=== PATIENT | male | born 1985 | race Caucasian/White ===

== ENCOUNTER → 2020-01-27 | Outpatient (REF) | payer OTHER, SELFPAY | LOC: M LAB REF 14:27 | PROVIDERS: ATTEND Physician Assistant | DX: Z20.828 Contact with and (suspected) exposure to other viral communicable diseases (principal); Z11.59 Encounter for screening for other viral diseases ==

== ENCOUNTER → 2023-10-30 | Outpatient (CLI) | payer OTHER ==
[2023-10-30 17:55] LABS: HEMATOCRIT 43.5 % (42.0-52.0); HEMOGLOBIN 14.9 g/dl (13.5-17.5); MEAN CORPUSCULAR HEMOGLOBIN 31.6 pg (27.0-33.0); MEAN CORPUSCULAR HGB CONC 34.3 g/dl (32.0-36.5); MEAN CORPUSCULAR VOLUME 92.2 fl (80.0-96.0); PLATELET COUNT, AUTOMATED 353 10^3/uL (150-450); RED BLOOD COUNT 4.72 10^6/uL (4.30-6.10); WHITE BLOOD COUNT 11.6 10^3/uL (4.0-10.0)
[2023-10-30 18:18] LABS: PERCENT SATURATION 34.1 % (19.7-50.0)
[2023-10-30 18:21] LABS: FERRITIN 25.3 NG/ML (10.5-307.3)
== END ==
LOC: M WUC 14:16
PROVIDERS: ATTEND Physician Assistant Surgical
DX: E61.1 Iron deficiency (principal)

== ENCOUNTER → 2024-06-16 | Outpatient (REF) | payer OTHER ==
[2024-06-16 13:23] LABS: HEMATOCRIT 45.8 % (42.0-52.0); HEMOGLOBIN 14.7 g/dl (13.5-17.5); MEAN CORPUSCULAR HEMOGLOBIN 29.8 pg (27.0-33.0); MEAN CORPUSCULAR HGB CONC 32.1 g/dl (32.0-36.5); MEAN CORPUSCULAR VOLUME 92.9 fl (80.0-96.0); PLATELET COUNT, AUTOMATED 338 10^3/uL (150-450); RED BLOOD COUNT 4.93 10^6/uL (4.30-6.10); WHITE BLOOD COUNT 9.3 10^3/uL (4.0-10.0)
[2024-06-16 13:33] LABS: C REACTIVE PROTEIN QUANTITATIV < 0.50 MG/DL (<1.0)
[2024-06-16 13:34] LABS: FERRITIN 8.2 NG/ML (10.5-307.3); IRON (FE) 86 UG/DL (65-175); PERCENT SATURATION 21.8 % (19.7-50.0); TOTAL 25(OH) VITAMIN D 26.6 NG/ML (20.0-100.0); TOTAL IRON BINDING CAPACITY 394 UG/DL (250-425)
[2024-06-16 13:37] LABS: ALBUMIN 3.9 G/DL (3.2-5.2); ALKALINE PHOSPHATASE 77 U/L (40-129); ALT/SGPT 20 U/L (7.0-40); AST/SGOT 16 U/L (<34); BILIRUBIN,DIRECT 0.2 MG/DL (<0.4); BILIRUBIN,TOTAL 0.6 MG/DL (0.3-1.2); BLOOD UREA NITROGEN 13 MG/DL (9-23); CALCIUM LEVEL 9.6 MG/DL (8.5-10.1); CARBON DIOXIDE LEVEL 27 MMOL/L (20-31); CHLORIDE LEVEL 104 MMOL/L (98-107); CREATININE FOR GFR 0.94 MG/DL (0.70-1.30); GLOMERULAR FILTRATION RATE > 90.0 (>60); GLUCOSE, FASTING 80 MG/DL (60-100); POTASSIUM SERUM 4.3 MMOL/L (3.5-5.1); SODIUM LEVEL 140 MMOL/L (136-145); TOTAL PROTEIN 7.7 G/DL (5.7-8.2)
== END ==
LOC: M LABDRAWP 12:44
PROVIDERS: ATTEND Physician Assistant Surgical
DX: K51.90 Ulcerative colitis, unspecified, without complications (principal)